=== PATIENT | female | born 1985 | race Caucasian/White ===

== ENCOUNTER 2016-09-22 19:58 | Emergency (ER) | payer OTHER ==
--- NOTE | 2016-09-22 20:48 | ER Document Report ---
ED Medical Screen (RME) - General Chief Complaint: Probable Seizure Stated Complaint: POSSIBLE SEIZURE Mode of Arrival: Ambulatory Information source: Patient Notes: Patient presents suspecting that she may have had a seizure this afternoon. Patient states she did not feel well and went to take a nap. Patient states she woke up later and had a headache and noticed she had facial abrasions. Patient does report previous history of seizures in the past but has not had any for the past 8 years. Patient complains of continued headache with nausea. TRAVEL OUTSIDE OF THE [place] IN LAST 30 DAYS: No - Related Data Allergies/Adverse Reactions: No Known Allergies Allergy (Unverified 09/22/16 20:17) Physical Exam - Vital signs Vitals: Temp Pulse Resp BP Pulse Ox 98.3 F 91 20 146/96 H 98 09/22/16 20:43 09/22/16 20:43 09/22/16 20:43 09/22/16 20:43 09/22/16 20:43 - Neurological Orientation: AAOx4 [place] Coma Scale Eye Opening: Spontaneous [place] Coma Scale Verbal: Oriented [place] Coma Scale Motor: Obeys Commands [place] Coma Scale Total: 15 Course - Vital Signs Vital signs: Temp Pulse Resp BP Pulse Ox 98.3 F 91 20 146/96 H 98 09/22/16 20:43 09/22/16 20:43 09/22/16 20:43 09/22/16 20:43 09/22/16 20:43
[2016-09-22] MEDS ORDERED: ACETAMINOPHEN 325 MG TABLET PO ONE (20:49)
[2016-09-22 21:58] LABS: ABSOLUTE BASOPHILS # (AUTO) 0.1 10^3/uL (0.0-0.2); ABSOLUTE EOSINOPHILS # (AUTO) 0.1 10^3/uL (0.0-0.6); ABSOLUTE LYMPHOCYTES (AUTO) 2.5 10^3/uL (0.5-4.7); ABSOLUTE MONOCYTES (AUTO) 0.5 10^3/uL (0.1-1.4); ABSOLUTE NEUT (AUTO) 9.9 10^3/uL (1.7-8.2); APPEARANCE,URINE CLEAR; BASOPHILS % (AUTO) 0.4 % (0-2); BILIRUBIN,URINE NEGATIVE (NEGATIVE); EOSINOPHILS % (AUTO) 0.9 % (0-6); GLUCOSE, URINE NEGATIVE (NEGATIVE); HEMATOCRIT 41.6 % (36.0-47.0); HEMOGLOBIN 14.1 g/dL (12.0-15.5); HGB HCT DIFFERENCE 0.7; KETONES,URINE NEGATIVE (NEGATIVE); LEUKOCYTE ESTERASE,URINE SMALL (NEGATIVE); MEAN CORPUSCULAR HEMOGLOBIN 27.8 pg (27.0-33.4); MEAN CORPUSCULAR VOLUME 82 fl (80-97); MONOCYTES % (AUTO) 3.8 % (3-13); NITRITE,URINE NEGATIVE (NEGATIVE); PROTEIN,URINE NEGATIVE (NEGATIVE); RED BLOOD COUNT 5.07 10^6/uL (3.72-5.28); RED CELL DISTRIBUTION WIDTH 12.8 % (11.5-14.0); SEGMENTED NEUTROPHILS % (AUTO) 75.9 % (42-78); URINE SPECIFIC GRAVITY 1.013; UROBILINOGEN,URINE NEGATIVE mg/dL (<2.0)
[2016-09-22 22:11] LABS: ALANINE AMINOTRANSFERASE 22 U/L (9-52); ALBUMIN 4.7 g/dL (3.5-5.0); ALKALINE PHOSPHATASE 81 U/L (38-126); ANION GAP 14 (5-19); ASPARTATE AMINO TRANSFERASE 19 U/L (14-36); BILIRUBIN,TOTAL 0.4 mg/dL (0.2-1.3); BLOOD UREA NITROGEN 8 mg/dL (7-20); CALCIUM 9.4 mg/dL (8.4-10.2); CARBON DIOXIDE 25 mmol/L (22-30); CHLORIDE 101 mmol/L (98-107); CREATININE RESULT 0.61 mg/dL (0.52-1.25); GLUCOSE 99 mg/dL (75-110); POTASSIUM 4.1 mmol/L (3.6-5.0); SODIUM 140.2 mmol/L (137-145); TOTAL PROTEIN 7.7 g/dL (6.3-8.2)
[2016-09-23] MEDS ORDERED: NORMAL SALINE 1000 ML 1,000 ML IV ONE (00:31)
--- NOTE | 2016-09-23 00:57 | ER Document Report ---
ED Seizure - General Chief Complaint: Probable Seizure Stated Complaint: POSSIBLE SEIZURE Time seen by provider: 00:30 Mode of Arrival: Ambulatory Notes: Patient is a 31-year-old female that comes emergency department with chief complaint of possible seizure, patient states that she started feeling very tired, she went to lie down, she states she awoke with a bruise on her forehead and a small abrasion to her right eyebrow. Past medical history of seizures but this was over 8 years ago, patient has not needed any medications and has a local company hazmat driver's license. Patient minutes that she had become intoxicated last night, she thinks she is dehydrated today, she denies any fever or any other abnormalities. - Related Data Allergies/Adverse Reactions: No Known Allergies Allergy (Unverified 09/22/16 20:17) Past Medical History - General Information source: Patient - Social History Smoking Status: Never Smoker Frequency of alcohol use: Occasional Lives with: Family Family History: Reviewed & Not Pertinent Neurological Medical History: Reports: Hx Seizures - Immunizations Immunizations up to date: Yes Hx Diphtheria, Pertussis, Tetanus Vaccination: Yes Review of Systems - Review of Systems Constitutional: No symptoms reported EENT: No symptoms reported Cardiovascular: No symptoms reported Respiratory: No symptoms reported Gastrointestinal: No symptoms reported Genitourinary: No symptoms reported Female Genitourinary: No symptoms reported Musculoskeletal: No symptoms reported Skin: See HPI Hematologic/Lymphatic: No symptoms reported Neurological/Psychological: See HPI Physical Exam - Vital signs Vitals: Temp Pulse Resp BP Pulse Ox 98.3 F 91 20 146/96 H 98 09/22/16 20:43 09/22/16 20:43 09/22/16 20:43 09/22/16 20:43 09/22/16 20:43 Interpretation: Normal - General General appearance: Alert, Anxious In distress: None - HEENT Head: Normocephalic, Atraumatic, Abrasions - Small abrasion and tiny superficial scratch over the right eyebrow, otherwise unremarkable exam Eyes: Normal Conjunctiva: Normal Extraocular movements intact: Yes Eyelashes: Normal Pupils: PERRL Nasal: Normal Mouth/Lips: Normal Mucous membranes: Normal Pharynx: Normal Neck: Normal - Respiratory Respiratory status: No respiratory distress Chest status: Nontender Breath sounds: Normal Chest palpation: Normal - Cardiovascular Rhythm: Regular Heart sounds: Normal auscultation Murmur: No - Abdominal Inspection: Normal Distension: No distension Bowel sounds: Normal Tenderness: Nontender Organomegaly: No organomegaly - Back Back: Normal, Nontender - Extremities General upper extremity: Normal inspection, Nontender, Normal color, Normal ROM , Normal temperature General lower extremity: Normal inspection, Nontender, Normal color, Normal ROM , Normal temperature, Normal weight bearing. No: Jeremy's sign - Neurological Neuro grossly intact: Yes Cognition: Normal Orientation: AAOx4 [place] Coma Scale Eye Opening: Spontaneous [place] Coma Scale Verbal: Oriented [place] Coma Scale Motor: Obeys Commands [place] Coma Scale Total: 15 Speech: Normal Motor strength normal: LUE, RUE, LLE, RLE Sensory: Normal - Psychological Associated symptoms: Normal affect, Normal mood, Other - Patient becomes anxious easily - Skin Skin Temperature: Warm Skin Moisture: Dry Skin Color: Normal Course - Re-evaluation Re-evalutation: Patient given IV fluids, workup is normal, CAT scan ordered in triage of the head is unremarkable, patient neurologically intact. Small abrasion on the face , nausea pertinent physical exam findings. Patient did not bite her tongue. Because of described symptoms, seizure history, referring to neurology for clearance, patient will not be started on antiepileptics at this time because of a two-year history of no seizures, alcohol use, dehydration reported, and lack of sleep from last night. Most likely the perfect storm for seizure and patient will not insistently need antiepileptics, however patient instructed to return immediately if she develops any return or new concerning symptoms. Patient family members state understanding and agreement. Note: Patient becomes very anxious when getting her vital signs checked, found to be hypertensive, instructed to follow this outpatient, patient states understanding. - Vital Signs Vital signs: Temp Pulse Resp BP Pulse Ox 97.6 F 90 16 150/106 H 100 09/23/16 03:00 09/23/16 03:00 09/23/16 03:00 09/23/16 03:00 09/23/16 03:00 - Laboratory Result Diagrams: 09/22/16 21:44 09/22/16 21:44 Laboratory results interpreted by me: 09/22/16 09/22/16 21:44 21:44 WBC 13.0 H Absolute Neutrophils 9.9 H Ur Leukocyte Esterase SMALL H Discharge - Discharge Clinical Impression: Seizure-like activity Facial abrasion Qualifiers: Encounter type: initial encounter Qualified Code(s): S00.81XA - Abrasion of other part of head, initial encounter Condition: Stable Disposition: HOME, SELF-CARE Additional Instructions: Your workup is normal. Your symptoms are concerning for possible seizure, please avoid alcohol, get plenty of sleep if possible. Do not drive until cleared to do so by neurology. Please follow-up with neurology referral or neurologist your choice. Return to emergency department for any concerning or worsening symptoms. Forms: Return to Work, Elevated Blood Pressure Referrals: MARLI DOWELL MD [ACTIVE STAFF] - Follow up as needed
[2016-09-23 01:19] LABS: MAGNESIUM 1.9 mg/dL (1.6-2.3)
[2016-09-23 01:26] LABS: ALCOHOL < 10 mg/dL (NONE DETECTED)
[2016-09-23 03:28] VITALS: BP 150/106
== END 2016-09-23 03:05 | disposition home or self-care (01) ==
LOC: ER 19:58
DX: S00.211A Abrasion of right eyelid and periocular area, initial encounter (principal); X58.XXXA Exposure to other specified factors, initial encounter; Y93.84 Activity, sleeping; R29.90 Unspecified symptoms and signs involving the nervous system; I10 Essential (primary) hypertension; F41.9 Anxiety disorder, unspecified
CPT/HCPCS: 99285; 36415; 83735; 85025; 81025; 80053; 81001; 70450; G0479; 80307

== ENCOUNTER 2019-01-09 10:59 | Emergency (ER) | payer SELFPAY ==
[2019-01-09] MEDS ORDERED: ONDANSETRON 4 MG TAB.RAPDIS PO ONE (11:13)
--- NOTE | 2019-01-09 11:19 | ER Document Report ---
ED Medical Screen (RME) - General Chief Complaint: Abdominal Pain Stated Complaint: ABDOMINAL PAIN Time Seen by Provider: 01/09/19 11:13 Mode of Arrival: Ambulatory Information source: Patient Notes: 33-year-old female presented to ED for right abdominal pain from the flank area down to the groin area 2 days. She states yesterday she vomited 2 times. Patient is alert oriented respirations regular and unlabored. She has a history of seizures and a right shoulder surgery for dislocation. She states she does not drink smoke or do any drugs. I have greeted and performed a rapid initial assessment of this patient. A comprehensive ED assessment and evaluation of the patient, analysis of test results and completion of medical decision making process will be conducted by an additional ED providers. TRAVEL OUTSIDE OF THE [place] IN LAST 30 DAYS: No - Related Data Allergies/Adverse Reactions: No Known Allergies Allergy (Verified 01/09/19 11:03) Past Medical History Neurological Medical History: Reports: Hx Seizures - Immunizations Immunizations up to date: Yes Hx Diphtheria, Pertussis, Tetanus Vaccination: Yes Physical Exam - Vital signs Vitals: Temp Pulse Resp BP Pulse Ox 98.3 F 99 16 141/94 H 99 01/09/19 11:07 01/09/19 11:07 01/09/19 11:07 01/09/19 11:07 01/09/19 11:07 Course - Vital Signs Vital signs: Temp Pulse Resp BP Pulse Ox 98.3 F 99 16 141/94 H 99 01/09/19 11:07 01/09/19 11:07 01/09/19 11:07 01/09/19 11:07 01/09/19 11:07
[2019-01-09 12:15] LABS: APPEARANCE,URINE SLIGHTLY-CLOUDY; BILIRUBIN,URINE NEGATIVE (NEGATIVE); COLOR,URINE YELLOW; GLUCOSE, URINE NEGATIVE (NEGATIVE); KETONES,URINE NEGATIVE (NEGATIVE); LEUKOCYTE ESTERASE,URINE SMALL (NEGATIVE); NITRITE,URINE NEGATIVE (NEGATIVE); PROTEIN,URINE NEGATIVE (NEGATIVE); URINE SPECIFIC GRAVITY 1.013; UROBILINOGEN,URINE NEGATIVE mg/dL (<2.0)
[2019-01-09 12:26] LABS: ABSOLUTE BASOPHILS # (AUTO) 0.1 10^3/uL (0.0-0.2); ABSOLUTE EOSINOPHILS # (AUTO) 0.1 10^3/uL (0.0-0.6); ABSOLUTE LYMPHOCYTES (AUTO) 1.3 10^3/uL (0.5-4.7); ABSOLUTE MONOCYTES (AUTO) 0.7 10^3/uL (0.1-1.4); ABSOLUTE NEUT (AUTO) 7.3 10^3/uL (1.7-8.2); BASOPHILS % (AUTO) 0.5 % (0-2); EOSINOPHILS % (AUTO) 0.8 % (0-6); HEMATOCRIT 40.6 % (36.0-47.0); HEMOGLOBIN 13.7 g/dL (12.0-15.5); LYMPHOCYTES % (AUTO) 13.8 % (13-45); MEAN CORPUSCULAR HGB CONC 33.8 g/dL (32.0-36.0); MEAN CORPUSCULAR VOLUME 83 fl (80-97); MONOCYTES % (AUTO) 7.9 % (3-13); PLATELET COUNT 232 10^3/uL (150-450); RED BLOOD COUNT 4.89 10^6/uL (3.72-5.28); RED CELL DISTRIBUTION WIDTH 13.7 % (11.5-14.0); TOTAL CELLS COUNTED % (AUTO) 100 %; WHITE BLOOD COUNT 9.5 10^3/uL (4.0-10.5)
[2019-01-09 12:44] LABS: ALANINE AMINOTRANSFERASE 22 U/L (9-52); ALBUMIN 3.9 g/dL (3.5-5.0); ALKALINE PHOSPHATASE 88 U/L (38-126); ANION GAP 8 (5-19); ASPARTATE AMINO TRANSFERASE 13 U/L (14-36); BILIRUBIN,DIRECT 0.2 mg/dL (0.0-0.4); BILIRUBIN,TOTAL 0.3 mg/dL (0.2-1.3); BLOOD UREA NITROGEN 8 mg/dL (7-20); CARBON DIOXIDE 23 mmol/L (22-30); CHLORIDE 110 mmol/L (98-107); GLUCOSE 83 mg/dL (75-110); SODIUM 141.4 mmol/L (137-145); TOTAL PROTEIN 6.9 g/dL (6.3-8.2)
[2019-01-09] MEDS ORDERED: KETOROLAC TROMETHAMINE INJ/PF 30 MG/1 ML SDV IV ONE (14:13)
[2019-01-09] MEDS ORDERED: ONDANSETRON HCL INJ/PF 4 MG/2 ML SDV IV ONE (14:13)
[2019-01-09] MEDS ORDERED: NORMAL SALINE 1000 ML 1,000 ML IV ONE (14:19)
--- NOTE | 2019-01-09 14:19 | ER Document Report ---
ED General - General Chief Complaint: Abdominal Pain Stated Complaint: ABDOMINAL PAIN Time Seen by Provider: 01/09/19 11:13 Primary Care Provider: KLAUS CHUNG MD [NO LOCAL MD] - 01/11/19 Mode of Arrival: Ambulatory Information source: Patient, [facility] Records Notes: 33-year-old female with seizures presents with right sided flank pain, right upper quadrant abdominal pain and right lower quadrant abdominal pain that started 1 day prior to arrival. Patient states that she awoke yesterday nauseous and vomiting. She states since that time she has not been able to timothy erate any food or fluid. She describes the pain as a stabbing pain that is constant. She denies any prior similar symptoms, history of kidney stones, dysuria, hematuria, vaginal discharge. Patient does report driving 10 hours yesterday from [place] from her grandmother's . TRAVEL OUTSIDE OF THE [place] IN LAST 30 DAYS: No - HPI Onset: Yesterday Onset/Duration: Sudden, Persistent, Worse Quality of pain: Stabbing Severity: Moderate Pain Level: 2 Associated symptoms: Body/muscle aches, Nausea, Vomiting. denies: Chest pain, Fever, Shortness of breath Exacerbated by: Denies Relieved by: Standing Similar symptoms previously: No Recently seen / treated by doctor: No - Related Data Allergies/Adverse Reactions: No Known Allergies Allergy (Verified 01/09/19 11:03) Past Medical History - General Information source: Patient - Social History Smoking Status: Never Smoker Chew tobacco use (# tins/day): No Frequency of alcohol use: Social Drug Abuse: None Lives with: Spouse/Significant other Family History: Reviewed & Not Pertinent Patient has suicidal ideation: No Patient has homicidal ideation: No Neurological Medical History: Reports: Hx Seizures Renal/ Medical History: Denies: Hx Peritoneal Dialysis - Immunizations Immunizations up to date: Yes Hx Diphtheria, Pertussis, Tetanus Vaccination: Yes Review of Systems - Review of Systems Notes: REVIEW OF SYSTEMS: CONSTITUTIONAL : Denies fever, chills, or sweats. Denies recent illness. Denies weight loss, recent hospitalizations. EENT: Denies visual changes, eye pain. Denies sore throat, oral lesions, difficulty swallowing. CARDIOVASCULAR: Denies chest pain. Denies palpitations. Denies lower extremity edema. RESPIRATORY: Denies cough. Denies shortness of breath, wheezing. GASTROINTESTINAL: Denies abdominal distention. Denies diarrhea. Denies blood in vomitus, stools, or per rectum. Denies black, tarry stools. Denies constipation. GENITOURINARY: Denies difficulty urinating, painful urination, frequency, bloo d in urine, or vaginal discharge. MUSCULOSKELETAL: Denies neck pain or stiffness. Denies joint pain or swelling. SKIN: Denies rash, lesions or sores. HEMATOLOGIC : Denies easy bruising or bleeding. LYMPHATIC: Denies swollen glands. NEUROLOGICAL: Denies confusion or altered mental status. Denies loss of consciousness. Denies dizziness or lightheadedness. Denies headache. Denies weakness or paralysis. Denies problems difficulty with ambulation, slurred speech. Denies sensory loss, numbness, or tingling. Denies seizures. PSYCHIATRIC: Denies anxiety or stress. Denies depression, suicidal ideation, or homicidal ideation. Denies visual or auditory hallucinations. Physical Exam - Vital signs Vitals: Temp Pulse Resp BP Pulse Ox 98.3 F 99 16 141/94 H 99 01/09/19 11:07 01/09/19 11:07 01/09/19 11:07 01/09/19 11:07 01/09/19 11:07 - Notes Notes: PHYSICAL EXAMINATION: GENERAL: Well-appearing, well-nourished and in no acute distress. HEAD: Atraumatic, normocephalic. EYES: Pupils equal round and reactive to light, extraocular movements intact, conjunctiva are normal. ENT: Nares patent, oropharynx clear without exudates. Moist mucous membranes. NECK: Normal range of motion, supple without lymphadenopathy LUNGS: Breath sounds clear to auscultation bilaterally and equal. No wheezes rales or rhonchi. HEART: Regular rate and rhythm without murmurs ABDOMEN: Soft, nontender, nondistended abdomen. No guarding, no rebound. No masses appreciated. Right flank pain. Female : deferred Musculoskeletal: Normal range of motion, no pitting or edema. No cyanosis. NEUROLOGICAL: Cranial nerves grossly intact. Normal speech, normal gait. Normal sensory, motor exams PSYCH: Normal mood, normal affect. SKIN: Warm, Dry, normal turgor, no rashes or lesions noted. Course - Re-evaluation Re-evalutation: 01/09/19 14:18 Temp Pulse Resp BP Pulse Ox 98.3 F 99 16 141/94 H 99 01/09/19 11:07 01/09/19 11:07 01/09/19 11:07 01/09/19 11:07 01/09/19 11:07 Laboratory 01/09/19 01/09/19 01/09/19 11:20 11:20 12:04 WBC 9.5 RBC 4.89 Hgb 13.7 Hct 40.6 MCV 83 MCH 28.0 MCHC 33.8 RDW 13.7 Plt Count 232 Seg Neutrophils % 77.0 Lymphocytes % 13.8 Monocytes % 7.9 Eosinophils % 0.8 Basophils % 0.5 Absolute Neutrophils 7.3 Absolute Lymphocytes 1.3 Absolute Monocytes 0.7 Absolute Eosinophils 0.1 Absolute Basophils 0.1 Sodium Potassium Chloride Carbon Dioxide Anion Gap BUN Creatinine Est GFR ( Amer) Est GFR (Non-Af Amer) Glucose Calcium Total Bilirubin Direct Bilirubin Neonat Total Bilirubin Neonat Direct Bilirubin Neonat Indirect Bili AST ALT Alkaline Phosphatase Total Protein Albumin Lipase Serum HCG, Qual Urine Color YELLOW Urine Appearance SLIGHTLY-CLOUDY Urine pH 6.0 Ur Specific Devine 1.013 Urine Protein NEGATIVE Urine Glucose (UA) NEGATIVE Urine Ketones NEGATIVE Urine Blood LARGE H Urine Nitrite NEGATIVE Urine Bilirubin NEGATIVE Urine Urobilinogen NEGATIVE Ur Leukocyte Esterase SMALL H Urine WBC (Auto) 6 Urine RBC (Auto) 71 Squamous Epi Cells Auto 3 Urine Mucus (Auto) RARE Urine Ascorbic Acid NEGATIVE Urine HCG, Qual NEGATIVE 01/09/19 01/09/19 01/09/19 12:04 12:04 14:35 WBC RBC Hgb Hct MCV MCH MCHC RDW Plt Count Seg Neutrophils % Lymphocytes % Monocytes % Eosinophils % Basophils % Absolute Neutrophils Absolute Lymphocytes Absolute Monocytes Absolute Eosinophils Absolute Basophils Sodium 141.4 Potassium 4.0 Chloride 110 H Carbon Dioxide 23 Anion Gap 8 BUN 8 Creatinine 0.93 Est GFR ( Amer) > 60 Est GFR (Non-Af Amer) > 60 Glucose 83 Calcium 9.0 Total Bilirubin 0.3 Direct Bilirubin 0.2 Neonat Total Bilirubin Not Reportable Neonat Direct Bilirubin Not Reportable Neonat Indirect Bili Not Reportable AST 13 L ALT 22 Alkaline Phosphatase 88 Total Protein 6.9 Albumin 3.9 Lipase 72.2 Serum HCG, Qual NEGATIVE Urine Color Urine Appearance Urine pH Ur Specific Devine Urine Protein Urine Glucose (UA) Urine Ketones Urine Blood Urine Nitrite Urine Bilirubin Urine Urobilinogen Ur Leukocyte Esterase Urine WBC (Auto) Urine RBC (Auto) Squamous Epi Cells Auto Urine Mucus (Auto) Urine Ascorbic Acid Urine HCG, Qual Abdomen/Pelvis CT 01/09/19 14:13 IMPRESSION: Obstructive uropathy the right secondary to a 7.4 mm proximal ureteral calculus. Temp Pulse Resp BP Pulse Ox 98.3 F 99 16 141/94 H 99 01/09/19 11:07 01/09/19 11:07 01/09/19 11:07 01/09/19 11:07 01/09/19 11:07 33-year-old female presents with 1 day of right flank pain, right sided abdominal pain and associated nausea and vomiting. Upon arrival vitals were r eviewed and within normal limits. Patient does appear to be in significant pain. CBC, CMP unremarkable. Urinalysis does show a large amount of blood. Exam is significant for right CVA tenderness, right upper quadrant tenderness and right lower quadrant tenderness. Patient will receive IV fluids, Toradol, Zofran. 01/09/19 16:26 [facility] contacted for urology consultation. 01/09/19 16:54 Patient was reevaluated after receiving Zofran and Toradol and reports improvem ent of her pain. CT does show a 7.4 mm proximal ureteral calculus with perinephric stranding and mild hydronephrosis. My concern is that patient states that she has no primary care physician or insurance. We did talk to Dr. Chung who has agreed to see the patient in follow-up and does recommend a ntibiotic treatment. Patient is very happy with this plan. - Vital Signs Vital signs: Temp Pulse Resp BP Pulse Ox 97.8 F 95 16 149/102 H 99 01/09/19 17:27 01/09/19 17:27 01/09/19 17:27 01/09/19 17:27 01/09/19 17:27 - Laboratory Result Diagrams: 01/09/19 12:04 01/09/19 12:04 Laboratory results interpreted by me: 01/09/19 01/09/19 11:20 12:04 Chloride 110 H AST 13 L Urine Blood LARGE H Ur Leukocyte Esterase SMALL H - Diagnostic Test Radiology reviewed: Image reviewed, Reports reviewed Discharge - Discharge Clinical Impression: Urolithiasis Qualifiers: Urinary calculus location: upper urinary tract Qualified Code(s): N20.9 - Urinary calculus, unspecified Hydronephrosis Qualifiers: Hydronephrosis type: with renal calculous obstruction Qualified Code(s): N13.2 - Hydronephrosis with renal and ureteral calculous obstruction Condition: Good Disposition: HOME, SELF-CARE Instructions: Kidney Stone ([facility]) Additional Instructions: Please call Dr. Chung urologist in [place] at [phone] first thing Friday. His office address is [address] [place] [address] Your symptoms should improve over the course of the next one week. If you continue to have pain for greater than one week or your pain is not controlled with the pain medications that you have been sent home with you need to return to the emergency department. Please also return if you develop fever, persist ent vomiting, or any other symptoms that are concerning to you. You should take ibuprofen 600 mg every 6 hours and use the oral Percocet as prescribed only for pain not controlled by Toradol. You are also been sent home with a medication called Flomax to help pass the stone. You've been given Zofran to assist with nausea. Please follow-up with urology in the next 2-3 days. Prescriptions: Ketorolac Tromethamine [Toradol 10 mg Tablet] 10 mg PO Q6HP PRN #16 tablet PRN Reason: Cephalexin Monohydrate [Keflex 500 mg Capsule] 500 mg PO BID 5 Days #10 capsule Forms: Elevated Blood Pressure Referrals: KLAUS CHUNG MD [NO LOCAL MD] - 01/11/19
[2019-01-09 14:42] LABS: LIPASE 72.2 U/L (23-300)
[2019-01-09] MEDS ORDERED: TAMSULOSIN HCL 0.4 MG CAP.SR.24H PO ONE (16:00)
--- NOTE | 2019-01-09 16:05 | RADIOLOGY REPORT (SQ) ---
EXAM DESCRIPTION: CT ABD/PELVIS WITH IV ONLY COMPLETED DATE/TIME: 01/09/2019 3:53 pm REASON FOR STUDY: right flank and r lower quad COMPARISON: None. TECHNIQUE: CT scan of the abdomen and pelvis performed using helical scanning technique with dynamic intravenous contrast injection. No oral contrast. Images reviewed with lung, soft tissue, and bone windows. Reconstructed coronal and sagittal MPR images reviewed. Delayed images for evaluation of the urinary system also acquired. All images stored on PACS. All CT scanners at this facility use dose modulation, iterative reconstruction, and/or weight based d osing when appropriate to reduce radiation dose to as low as reasonably achievable (ALARA). [facility]: Dose Right [facility]: CareDose [facility]: Dose Right [facility]: Teradose 4D [facility]: Urbful CONTRAST TYPE AND DOSE: contrast/concentration: Isovue 350.00 mg/ml; Total Contrast Delivered: 100.0 ml; Total Saline Delivered: 72.0 ml RENAL FUNCTION: None required. The patient is less than 50 years old. RADIATION DOSE: CT Rad equipment meets quality standard of care and radiation dose reduction techniq ues were employed. CTDIvol: 20.2 - 29.2 mGy. DLP: 2656 mGy-cm.. LIMITATIONS: None. FINDINGS: LOWER CHEST: No significant findings. No nodules or infiltrates. LIVER: Normal size. No masses. No dilated ducts. SPLEEN: Normal size. No focal lesions. PANCREAS: No masses. No significant calcifications. No adjacent inflammation or peripancreatic fluid collections. Pancreatic duct not dilated. GALLBLADDER: No identified stones by CT criteria. No inflammatory changes to suggest cholecystitis. ADRENAL GLANDS: No significant masses or asymmetry. RIGHT KIDNEY AND URETER: No solid masses. 7.4 mm proximal ureteral calculus. Mild proximal hydron ephrosis and perinephric stranding. LEFT KIDNEY AND URETER: No solid masses. No significant calcifications. No hydronephrosis or hydr oureter. AORTA AND VESSELS: No aneurysm. No dissection. Renal arteries, SMA, celiac without stenosis. RETROPERITONEUM: No retroperitoneal adenopathy, hemorrhage or masses. BOWEL AND PERITONEAL CAVITY: No masses or inflammatory changes. No free fluid or peritoneal masses. APPENDIX: Normal. PELVIS: No mass. No free fluid. Normal bladder. ABDOMINAL WALL: No masses. No hernias. BONES: No significant or acute findings. OTHER: No other significant finding. IMPRESSION: Obstructive uropathy the right secondary to a 7.4 mm proximal ureteral calculus. TECHNICAL DOCUMENTATION: JOB ID: [id number] Quality ID # [id number]: Final reports with documentation of one or more dose reduction techniques (e.g., Au tomated exposure control, adjustment of the mA and/or kV according to patient size, use of iterative reconstruction technique) 2010 [employer]- All Rights Reserved Reading location - IP/workstation name: [email or web address]
[2019-01-09] MEDS ORDERED: CEPHALEXIN 500 MG CAPSULE PO ONE (16:58)
[2019-01-09] MEDS ORDERED: ONDANSETRON ODT 4 MG TAB (6 TAB/ER DISP) PO PRN (16:59)
[2019-01-09] MEDS ORDERED: HYDROCODONE/ACETAMINOPHEN 5-325 MG (6 TAB/ER DISP) PO PRN (17:00)
[2019-01-09 17:29] VITALS: BP 149/102
== END 2019-01-09 17:32 | disposition home or self-care (01) ==
LOC: ER 10:59
DX: N13.2 Hydronephrosis with renal and ureteral calculous obstruction (principal); R10.9 Unspecified abdominal pain; R10.11 Right upper quadrant pain; R10.31 Right lower quadrant pain; R11.2 Nausea with vomiting, unspecified; R31.9 Hematuria, unspecified
CPT/HCPCS: 99284; 96361; 96374; 96375; 36415; 83690; 84703; 85025; 81025; 80053; 81001; 74177; S0119; J1885; J2405; J7030

== ENCOUNTER → 2020-02-08 | Outpatient (CLI) | payer BC ==
--- NOTE | 2020-02-08 14:35 | NEURO WORKBENCH EEG REPORT ---
EEG Report Patient: Ramonita Szymanski ID: [id number] Referring Doctor: Zeeshan Ramírez Date: 02/08/2020 Reason for study: Evaluate Epileptiform activity Medications: Trokendi XR (Topiramate), Briviact (brivaracetam), Clonazepam History: This is a 35 year old female with a history of anxiety, asthma, and epilepsy. The patient was reportedly diagnosed with seizures at age 21 and the last seizure was the day prior to this study. This EEG was requested for evaluation of epileptiform activity. EEG Interpretation: This EEG was recorded during wakefulness and stage I sleep. The awake EEG is characterized by a well organized background with a well developed and reactive posterior dominant rhythm (PDR) of approximately 12 Hz. The remainder of the background consisted of prominent diffuse low amplitude beta activity. The EEG is symmetric in amplitudes and frequencies. Photic stimulation resulted in excellent photic driving, and there was no epileptiform activity elicited with photic stimulation. Stage I sleep was achieved and characterized by slow rolling eye movements and minimal slowing of the background rhythm. There was not definitive sleep architecture such as K-complexes, vertex waves, or sleep spindles. There were no epileptiform abnormalities (no sharp waves and no spikes). There were no seizures. The EKG showed a regular rhythm with typically 70-90 beats per minute. EEG Impression: This EEG is overall within normal limits for age (sparing diffuse beta activity as discussed below, which is a very minor and non-specific finding). However it should be noted that the patient is taking three medications which could potentially suppress interictal epileptiform activity. Diffuse beta activity can commonly be seen with medications such as benzodiazepines, which the patient is taking. There was no epileptiform activity or seizures. A single normal routine EEG does not rule out the possibility of epilepsy. If there is high clinical suspicion for epilepsy, then additional EEG evaluation should be considered with a sleep-deprived EEG or more prolonged EEG monitoring INTERPRETING NEUROLOGIST: Kj Hardy MD Board certified by the [place] [employer] in Neurology, Clinical Neurophysiology, and Sleep Medicine [facility]
== END ==
LOC: NEURO 08:15
PROVIDERS: ATTEND Pediatrics
DX: G40.919 Epilepsy, unspecified, intractable, without status epilepticus (principal); F41.9 Anxiety disorder, unspecified; Z91.19 Patient's noncompliance with other medical treatment and regimen
CPT/HCPCS: 95819